=== PATIENT | female | born 1965 | race Caucasian/White ===

== ENCOUNTER 2016-12-11 18:24 | Emergency (ER) | payer OTHER ==
[~2016-12-11] VITALS: Ht 152.4 cm; Wt 74.8 kg
[~2016-12-11 18:24] MED LIST: AZITHROMYCIN250 MG1 PO; BACTRIM,SEPT1 TABLET PO; CEFDINIR300 MG PO; CLEOCIN300 MG PO; CLINDAMYCIN HC150 MG PO; CLINDAMYCIN HC300 MG PO; HYDROCODON-ACE1 EAC7 PO; INDOCIN25 MG PO; INDOCIN50 MG PO; KEFLEX500 MG PO; METFORMIN HCL500 M1 PO; MOTRIN600 MG PO; NAPROSYN500 MG PO; NO HOME MEDS; NOHOMEMEDS; NORCO 5/3251 TABLET PO; NORCO 7.5/321 TABLET PO; PERCOCET 5/31 TABLET PO; PREDNISONE20 MG PO; TYLENOL WITH C1 EACH PO; TYLENOL325 M1; TYLENOL325 M1 PO; ULTRAM50 MG PO; VALIUM5 MG PO; VIBRAMYCIN100 MG PO
[2016-12-11] MEDS ORDERED: NAPROXEN500 MG PO (20:53)
[2016-12-11 21:24] VITALS: BP 115/76
== END 2016-12-11 21:25 | disposition home or self-care (01) ==
LOC: EME 18:24
DX: S43.402A Unspecified sprain of left shoulder joint, initial encounter (principal); X50.0XXA Overexertion from strenuous movement or load, initial encounter; Y99.0 Civilian activity done for income or pay; Y92.512 Supermarket, store or market as the place of occurrence of the external cause; F17.200 Nicotine dependence, unspecified, uncomplicated
CPT/HCPCS: 73030; 99281; 99284

== ENCOUNTER 2017-06-16 19:44 | Emergency (ER) | payer OTHER ==
[~2017-06-16] VITALS: Ht 152.4 cm; Wt 79.4 kg
[~2017-06-16 19:44] MED LIST changes: +NAPROXEN500 MG PO
[2017-06-16] MEDS ORDERED: NAPROXEN500 MG PO (21:16)
[2017-06-16 21:59] VITALS: BP 135/93
== END 2017-06-16 22:00 | disposition home or self-care (01) ==
LOC: EME 19:44
DX: S63.501A Unspecified sprain of right wrist, initial encounter (principal); W22.03XA Walked into furniture, initial encounter; Z88.6 Allergy status to analgesic agent; Z88.2 Allergy status to sulfonamides
CPT/HCPCS: 73110; 99281; 99283; J1885

== ENCOUNTER → 2017-10-22 | Outpatient (CLI) | payer OTHER | END | disposition home or self-care (01) | LOC: CDC | DX: Z01.810 Encounter for preprocedural cardiovascular examination (principal); M79.642 Pain in left hand; G56.02 Carpal tunnel syndrome, left upper limb | CPT/HCPCS: 93000 ==

== ENCOUNTER 2018-06-26 00:30 | Emergency (ER) | payer SELFPAY ==
[~2018-06-26] VITALS: Ht 152.4 cm; Wt 79.6 kg
[2018-06-26 00:33] VITALS: BP 135/84
[2018-06-26] MEDS ORDERED: LIDODERM 5% P1 PATCH TD (03:48)
[2018-06-26] MEDS ORDERED: FLEXERIL10 MG PO (03:48)
[2018-06-26] MEDS ORDERED: TYLENOL WITH C1 EACH PO (04:17)
== END 2018-06-26 04:21 | disposition home or self-care (01) ==
LOC: EME 00:30
DX: S46.911A Strain of unspecified muscle, fascia and tendon at shoulder and upper arm level, right arm, initial encounter (principal); X58.XXXA Exposure to other specified factors, initial encounter; Z72.0 Tobacco use
CPT/HCPCS: 73030; 99281; 99283